=== PATIENT | female | born 1965 | race Caucasian/White ===

== ENCOUNTER → 2017-03-01 | Outpatient (CLI) | payer BC, OTHER | LOC: BMCIMAGING 09:47 | PROVIDERS: ATTEND Nurse Practitioner Adult Health | DX: M25.551 Pain in right hip (principal); M25.552 Pain in left hip ==

== ENCOUNTER → 2017-06-03 | Outpatient (CLI) | payer BC, OTHER | LOC: BMCIMAGING 08:41 | PROVIDERS: ATTEND Internal Medicine Hematology & Oncology | DX: N63.11 Unspecified lump in the right breast, upper outer quadrant (principal); Z85.3 Personal history of malignant neoplasm of breast | CPT/HCPCS: G0204 ==

== ENCOUNTER → 2017-10-18 | Outpatient (CLI) | payer OTHER, BC | LOC: BMCIMAGING 08:37 | PROVIDERS: ATTEND Family Medicine | DX: Z13.820 Encounter for screening for osteoporosis (principal); M81.0 Age-related osteoporosis without current pathological fracture ==

== ENCOUNTER → 2018-07-30 | Outpatient (CLI) | payer BC, OTHER | LOC: FIMAGING 08:10 | PROVIDERS: ATTEND Internal Medicine Hematology & Oncology | DX: M54.5 Low back pain (principal); Z85.3 Personal history of malignant neoplasm of breast | CPT/HCPCS: 78306; A9503 ==

== ENCOUNTER → 2018-08-07 | Outpatient (CLI) | payer BC, OTHER | LOC: BMCIMAGING 13:50 | PROVIDERS: ATTEND Internal Medicine Hematology & Oncology | DX: Z12.31 Encounter for screening mammogram for malignant neoplasm of breast (principal); Z85.3 Personal history of malignant neoplasm of breast ==

== ENCOUNTER → 2018-10-06 | Outpatient (CLI) | payer BC | LOC: BMCIMAGING 07:07 | PROVIDERS: ATTEND Family Medicine | DX: Z12.73 Encounter for screening for malignant neoplasm of ovary (principal) ==